=== PATIENT | male | born 1960 | race Caucasian/White ===

== ENCOUNTER 2017-02-06 18:05 | Emergency (ER) | payer OTHER ==
[~2017-02-06] VITALS: Ht 193 cm; Wt 108.9 kg
[2017-02-06] MEDS ORDERED: VALS320T2 PO (18:28)
[2017-02-06] MEDS ORDERED: METF10002 PO (18:28)
--- NOTE | 2017-02-06 20:15 | NUR ---
Transfer Information faxed to [facility], Dr. Alvarez ([facility]) is credit control officer.
[2017-02-06 20:28] LABS: BASOPHILS # (AUTO) 0.1 K/uL (0.0-8.0); BASOPHILS % (AUTO) 0.9 % (0.0-2.0); EOSINOPHILS # (AUTO) 0.1 K/uL (0.0-0.7); EOSINOPHILS % (AUTO) 1.3 % (0.0-7.0); HEMATOCRIT 42.4 % (40-50); HEMOGLOBIN 14.2 G/DL (14.0-18.0); LYMPHOCYTES # (AUTO) 2.1 K/UL (0.8-4.8); LYMPHOCYTES % (AUTO) 25.3 % (20.5-51.5); MEAN CORPUSCULAR HEMOGLOBIN 32.9 UUG (27.0-31.0); MEAN CORPUSCULAR HGB CONC 34 g/dL (32.0-37.0); MONOCYTES # (AUTO) 0.8 K/UL (0.1-1.30); MONOCYTES % (AUTO) 9.5 % (0.0-11.0); NEUTROPHILS # (AUTO) 5.1 K/UL (1.8-8.9); PLATELET COUNT (AUTO) 176 K/UL (150-450); RED BLOOD CELL COUNT(AUTO) 4.32 MIL/UL (4.7-6.1); WHITE BLOOD COUNT (AUTO) 8.2 K/UL (4.0-11.2)
[2017-02-06 20:32] LABS: POTASSIUM 4.4 mmol/L (3.5-5.1)
[2017-02-06 20:38] LABS: BILIRUBIN,DIRECT 0.1 mg/dL (0.0-0.2); BILIRUBIN,TOTAL 0.4 mg/dL (0.2-1.0); TOTAL PROTEIN, SERUM 7.8 g/dL (6.4-8.2)
--- NOTE | 2017-02-06 20:41 | NUR ---
NITIN spoke with Dr. Alvarez
--- NOTE | 2017-02-06 22:31 | NUR ---
Patient discharged to home in stable conditon with instructions to follow up with Dr. Oquendo's office at 9am tomorrow morning. Written and verbal after care instructions given. Patient verbalizes understanding of instructions.
[2017-02-06 22:32] VITALS: BP 138/72
== END 2017-02-06 22:34 | disposition home or self-care (01) ==
LOC: ER 18:07
DX: S61.432A Puncture wound without foreign body of left hand, initial encounter (principal); E11.9 Type 2 diabetes mellitus without complications; W01.0XXA Fall on same level from slipping, tripping and stumbling without subsequent striking against object, initial encounter; Y93.01 Activity, walking, marching and hiking; Y92.9 Unspecified place or not applicable; Y99.9 Unspecified external cause status
CPT/HCPCS: 36415; 71010; 73200; 85025; 85730; 87040; 90715; 93005; A4217; A4663; J1170; J2270; J2543; J3370; J7030; Q0162